=== PATIENT | female | born 1955 | race Caucasian/White ===

== ENCOUNTER → 2017-06-09 | Outpatient (CLI) | payer BC ==
[~2017-06-09] MED LIST: ALB0.5 INH; ALPR-461 PO; AUG875 PO; BI-EST; BI-EST PO; CAR350 PO; CARI-1 PO; CYC10 PO; CYCL10TA29 PO; ESTR0.5T18 PO; ESTRADIOL TD; FENT-23 TD; HYDR-2954 PO; HYDR-4309 PO; IBU600 PO; IBUP-1671 PO; IBUP-56 PO; LEVO75TA68 PO; LIOT50TA PO; LIOT5TAB12 PO; LIOT5TAB18; LIOT5TAB18 PO; LOR5 PO; LOR5/325 PO; METH4TAB57 PO; METH4TAB66 PO; OMEP-125 PO; OMEP40CA45 PO; ONDA4TAB PO; OXYC-865 PO; PANT40TA65 PO; PER PO; PRE20 PO; PRED-314 PO; PROG200C16; PROG200C16 PO; PROG200C7 PO; RANI-324 PO; RANI-325 PO; ROXICODONE PO; SUCR1TAB51 PO; SUCR1TAB85 PO; VICOPROFPT PO; [UNRECOGNIZED DRUG - CODE] PO
--- NOTE | 2017-06-10 14:19 | RADIOLOGY IMAGING REPORT ---
FACILITY: [facility] PATIENT NAME: ULISES LAMB : [id number] MR: [id number] V: [id number] EXAM DATE: [id number] ORDERING PHYSICIAN: IMTIAZ CHAPIN TECHNOLOGIST: Tana Hooks PROCEDURE:BILATERAL DIGITAL SCREENING MAMMOGRAM WITH CAD ASSISTED INTERPRETATION AND 3D BREAST TOMOSYNTHESIS. COMPARISON:Prior mammograms dated 06/05/16, 06/04/15, 12/15/14 and 06/15/14. INDICATIONS:SCREENING FINDINGS: A small to moderate amount of fibroglandular tissue is seen throughout the breasts. The parenchymal pattern has remained stable when allowing for difference in mammographic technique and patient positioning. There is no evidence of malignant appearing mass, malignant appearing calcification or other secondary sign of malignancy in either breast. DIAGNOSTIC CATEGORY 2--BENIGN FINDING. RECOMMENDATIONS: ROUTINE MAMMOGRAM AND CLINICAL EVALUATION. IMPRESSION: Bi-RADS 2: No significant abnormality is seen. Images were reviewed with R2CAD and 3D breast tomosynthesis. Dictated by: Yue Stallings M.D. on 06/09/2017 at 10:00 Transcribed by: ARETHA on 06/09/2017 at 15:06 Approved by: Yue Stallings M.D. on 06/10/2017 at 14:18 [facility]
== END ==
LOC: MAMO 01:25
PROVIDERS: ATTEND Family Medicine
DX: Z12.31 Encounter for screening mammogram for malignant neoplasm of breast (principal)
CPT/HCPCS: 77063; 77067

== ENCOUNTER 2017-07-15 22:53 | Emergency (ER) | payer BC ==
[~2017-07-15] VITALS: Ht 162.6 cm; Wt 63.5 kg
--- NOTE | 2017-07-15 23:04 | ER Report ---
History and Physical Time Seen By MD: 23:04 HPI/ROS CHIEF COMPLAINT: Low back pain, left leg pain HISTORY OF PRESENT ILLNESS: 61-year-old female with a long history of degenerative disc disease of her spine. Patient's here with aggravation of her pain down her left leg. Yesterday she was lifting groceries and felt a pulling sensation. She's been trying her oral medication and Flexeril at home without relief. She is status post 2 epidural steroid injections early April and early May without improvement of her condition. She is followed by Dr. Espinal over it [facility]. Patient has 2 previous ER visits for exacerbations of her pain many months apart. Patient denies fever or chills. Patient denies dysuria, frequency or hematuria. Patient denies incontinence. Patient reports she has an MRI from back in March of her lumbar region REVIEW OF SYSTEMS: Respiratory: No cough, no dyspnea. Cardiovascular: No chest pain, no palpitations. Gastrointestinal: No vomiting, no abdominal pain. Musculoskeletal: As above Allergies: Coded Allergies: metronidazole (Verified Allergy, Severe, RASH, 07/15/17) ciprofloxacin (Verified Allergy, Intermediate, Rash, 07/15/17) Sulfa (Sulfonamide Antibiotics) (Verified Allergy, Mild, 07/15/17) Disorientation Home Meds Active Scripts Methylprednisolone (METHYLPREDNISOLONE) 4 Mg Tab.ds.pk, 4 MG PO DIRECTED for sciatic nerve inflammation, #1 TAB Prov:MANUELA HAIDER Pablo DO 07/15/17 Oxycodone Hcl/Acetaminophen (PERCOCET 5-325 MG TABLET) 1 Each Tablet, 1-2 EACH PO Q4-6H Y for PAIN, #15 Prov:MELIZAMANUELA Pablo DO 07/15/17 Carisoprodol (SOMA) 350 Mg Tablet, 350 MG PO TID Y for muscle spasm relief, #20 TAB Prov:MANUELA HAIDER DO 07/15/17 Reported Medications [Hrt Patch] No Conflict Check, 1 PATCH.72H TD TWICE WEEKLY 07/15/17 Ibuprofen (MOTRIN IB) 200 Mg Tablet, 1-2 TAB PO PRN Y for PAIN 09/03/16 Cyclobenzaprine Hcl (CYCLOBENZAPRINE HCL) 10 Mg Tablet, 10 MG PO TID Y for BACK SPASM, #9 TAB 08/17/15 Liothyronine Sodium (CYTOMEL) 5 Mcg Tablet, 10 MCG PO DAILY 08/17/15 Levothyroxine Sodium (SYNTHROID) 75 Mcg Tablet, 75 MCG PO DAILY 04/13/13 Discontinued Scripts Carisoprodol (SOMA) 350 Mg Tablet, 350 MG PO QID Y for MUSCLE SPASMS, #20 TAB 0 Refills Prov:REGINA SHERMAN MD 01/29/17 Oxycodone Hcl/Acetaminophen (PERCOCET 5-325 MG TABLET) 1 Each Tablet, 1 EACH PO Q4H Y for PAIN, #12 TAB 0 Refills Prov:REGINA SHERMAN MD 01/29/17 Reviewed Nurses Notes: Yes Old Medical Records Reviewed: Yes Hx Smoking: No Smoking Status: Never Smoker Exposure to Second Hand Smoke?: No Hx Substance Use Disorder: No Hx Alcohol Use: Yes Constitutional Vital Sign - Last 24 Hours 07/15/17 07/15/17 23:05 23:48 Pulse 102 94 Resp 14 14 B/P (MAP) 128/90 114/95 (101) Pulse Ox 95 95 O2 Delivery Room Air Room Air Physical Exam General Appearance: The patient is alert, has no immediate need for airway protection and no current signs of toxicity. Vital signs stable, afebrile, pulse ox normal Eyes: Pupils equal and round no injection. Respiratory: Chest is non tender, lungs are clear to auscultation. Cardiac: regular rate and rhythm Gastrointestinal: Abdomen is soft and non tender, no masses, bowel sounds normal. Musculoskeletal: Neck: Neck is supple and non tender. Back: There is no tenderness in the midline. There is tenderness in the lumbar paraspinous muscles on the left and over the course of the sciatic nerve. Extremities have full range of motion and are non tender. Negative straight leg raise Skin: No rashes or lesions. DIFFERENTIAL DIAGNOSIS: After history and physical exam differential diagnosis was considered for back pain including but not limited to muscular pain, herniated disc, spine fracture, intra-abdominal causes and urinary tract infection. Medical Decision Making ED Course/Re-evaluation ED Course Patient was admitted to an examination room. H&P was done. The differential diagnoses was considered. On clinical examination. Patient has a nonfocal neurologic examination. She has tenderness over the left sciatic nerve. Patient reports she did have benefit from a Medrol Dosepak back in February by her primary care physician. She will be prescribed a Medrol Dosepak. She'll be given a limited supply of Soma and Percocet for pain relief. Here in the ER. She is administered. 2 mg of Dilaudid. And sent home with Dilaudid prepack. Decision to Disposition Date: Jul 15, 2017 Decision to Disposition Time: 23:24 Depart Departure Latest Vital Signs Vital Signs Date Time Temp Pulse Resp B/P (MAP) Pulse Ox O2 Delivery O2 Flow Rate FiO2 07/15/17 23:48 94 14 114/95 (101) 95 Room Air Impression: Primary Impression: Sciatica of left side Additional Impression: Degenerative disc disease, lumbar Condition: Improved Disposition: HOME OR SELF-CARE Referrals: IMTIAZ CHAPIN DO (PCP) New Scripts Methylprednisolone (METHYLPREDNISOLONE) 4 Mg Tab.ds.pk 4 MG PO DIRECTED for sciatic nerve inflammation, #1 TAB Prov: MANUELA HAIDER DO 07/15/17 Oxycodone Hcl/Acetaminophen (PERCOCET 5-325 MG TABLET) 1 Each Tablet 1-2 EACH PO Q4-6H Y for PAIN, #15 Prov: MANUELA HAIDER DO 07/15/17 Carisoprodol (SOMA) 350 Mg Tablet 350 MG PO TID Y for muscle spasm relief, #20 TAB Prov: MANUELA HAIDER DO 07/15/17 Patient Instructions: Degenerative Disc Disease (ED), Sciatica (ED) Additional Instructions: Follow-up with your primary care or Dr. Redmond if unimproved in 3-5 days Problem Qualifiers MANUELA HAIDER DO Jul 15, 2017 23:04
[2017-07-15] MEDS ORDERED: HRT PATCH TD (23:05)
[2017-07-15] MEDS ORDERED: METH4TAB66 PO (23:27)
[2017-07-15] MEDS ORDERED: CARI-1 PO (23:27)
[2017-07-15] MEDS ORDERED: OXYC-865 PO (23:27)
[2017-07-15] MEDS ORDERED: HYDROmorphone HCL 2 MG TAB PO ONE (23:30)
[2017-07-15] MEDS ORDERED: DIAZEPAM 5 MG TAB PO ONE (23:30)
[2017-07-15] MEDS ORDERED: HYDROmorphone 2 MG TAB TH 2 TAB/BOTTLE PO ONE (23:30)
[2017-07-15 23:48] VITALS: BP 114/95
== END 2017-07-15 23:48 | disposition home or self-care (01) ==
LOC: ER 23:03
DX: M54.32 Sciatica, left side (principal)
CPT/HCPCS: 99281; A9270

== ENCOUNTER 2018-03-06 14:08 | Emergency (ER) | payer BC ==
[~2018-03-06 14:08] MED LIST changes: +HRT PATCH TD; -RANI-324 PO; +RANI-366 PO
[2018-03-06] MEDS ORDERED: DIPHTH/TETANUS/ACEL. PERTUSSIS IM ONLY ONE (14:35)
--- NOTE | 2018-03-06 14:58 | ER Report ---
History and Physical Time Seen By MD: 14:25 Hx. of Stated Complaint: FELL FIVE FEET OFF A LADDER. HIT BACK OF HEAD, LANDED ON GLASS. LAC TO BACK OF HEAD. C=COLLAR APPLIED AT TIME OF ARRIVAL IN ER HPI/ROS CHIEF COMPLAINT: fall, head and neck injury HISTORY OF PRESENT ILLNESS: Patient was on a ladder at home approximately 30 minutes prior to arrival when she slipped back and fell. Patient feels she was approximately 5 feet off the ground she when she fell back and her head hit against a cabinet. As she continued to fall, the back of her head struck a glass cabinet, breaking the glass. She ultimately struck the ground. Her helped her up though she states she did not lose consciousness. She was able to ambulate on her own. She felt pain in the back of her head, and noted bleeding, and noted pain in the back of her neck. She now complains primarily of pain in the back of her neck. She denies visual changes, chest pain, shortness of breath, vomiting, numbness or weakness. She does have ongoing back pain for which she takes multiple medications but states that she this pain has not been exacerbated. REVIEW OF SYSTEMS: Constitutional: No fever, no chills. Eyes: No discharge. ENT: No sore throat. Cardiovascular: No chest pain, no palpitations. Respiratory: No cough, no shortness of breath. Gastrointestinal: No abdominal pain, no vomiting. Genitourinary: No hematuria. Musculoskeletal: Baseline back pain Skin: No rashes. Neurological: above Remainder of the 14 system rev: Yes Allergies: Coded Allergies: metronidazole (Verified Allergy, Severe, RASH, 03/06/18) ciprofloxacin (Verified Allergy, Intermediate, Rash, 03/06/18) Sulfa (Sulfonamide Antibiotics) (Verified Allergy, Mild, 03/06/18) Disorientation Home Meds Active Scripts Oxycodone Hcl/Acetaminophen (PERCOCET 5-325 MG TABLET) 1 Each Tablet, 1-2 EACH PO Q4-6H PRN for PAIN, #15 Prov:MANUELA HAIDER DO 07/15/17 Reported Medications [Hrt Patch] No Conflict Check, 1 PATCH.72H TD TWICE WEEKLY 07/15/17 Cyclobenzaprine Hcl (CYCLOBENZAPRINE HCL) 10 Mg Tablet, 10 MG PO TID PRN for BACK SPASM, #9 TAB 08/17/15 Liothyronine Sodium (CYTOMEL) 5 Mcg Tablet, 10 MCG PO DAILY 08/17/15 Levothyroxine Sodium (SYNTHROID) 75 Mcg Tablet, 75 MCG PO DAILY 04/13/13 Discontinued Reported Medications Ibuprofen (MOTRIN IB) 200 Mg Tablet, 1-2 TAB PO PRN PRN for PAIN 09/03/16 Discontinued Scripts Methylprednisolone (METHYLPREDNISOLONE) 4 Mg Tab.ds.pk, 4 MG PO DIRECTED for sciatic nerve inflammation, #1 TAB Prov:MANUELA HAIDER DO 07/15/17 Carisoprodol (SOMA) 350 Mg Tablet, 350 MG PO TID PRN for muscle spasm relief, #20 TAB Prov:MANUELA HAIDER DO 07/15/17 Reviewed Nurses Notes: Yes Hx Smoking: No Smoking Status: Never Smoker Exposure to Second Hand Smoke?: No Hx Substance Use Disorder: No Hx Alcohol Use: No Constitutional Vital Sign - Last 24 Hours 03/06/18 14:12 Temp 97.6 Pulse 99 Resp 16 B/P (MAP) 124/99 Pulse Ox 95 O2 Delivery Room Air Physical Exam General Appearance: The patient is alert, has no immediate need for airway protection and no signs of toxicity. Eyes: Pupils equal and round no pallor or injection. ENT, Mouth: Mucous membranes are moist. Head - 1.5 cm laceration posterior mid occiput with dried crusted blood Respiratory: There are no retractions, lungs are clear to auscultation. Cardiovascular: Regular rate and rhythm. Neurological: alert, oriented, moves all extremities Skin: Warm and dry, no rashes. Musculoskeletal: mid cspine ttp no stepoffs Extremities are nontender, nonswollen and have full range of motion. DIFFERENTIAL DIAGNOSIS: After history and physical exam differential diagnosis was considered for closed head injury, ich, cervical spine fracture or other emergent etiology Medical Decision Making ED Course/Re-evaluation ED Course Patient presents status post fall. CT is unremarkable. Repeat exam shows no further injury. Laceration irrigated thoroughly and evaluated to depth without foreign body or evidence of fracture. Patient ambulates without discomfort on discharge. She has pain medication at home for back pain and I recommend no additional pain medication other than ice and massage for soft tissues. Patient understands strict return precautions for signs of infection or other concerning symptoms. Procedure Procedure: Laceration repair. [Verbal consent was obtained from the patient.] The 4cm laceration on the mid post scalp was anesthetized with let The wound was irrigated, draped and explored to its base with a gloved finger. There were no deep structures involved. No tendon injury was identified. The wound was repaired with 6 nils. The wound repair was simple. The procedure was performed by myself. Decision to Disposition Date: Mar 06, 2018 Decision to Disposition Time: 16:15 Depart Departure Latest Vital Signs Vital Signs Date Time Temp Pulse Resp B/P (MAP) Pulse Ox O2 Delivery O2 Flow Rate FiO2 03/06/18 14:12 97.6 99 16 124/99 95 Room Air Impression: Primary Impression: Closed head injury Additional Impression: Scalp laceration Condition: Improved Disposition: HOME OR SELF-CARE Referrals: IMTIAZ CHAPIN DO (PCP) 10 Days Follow up in 9-10 days for staple remover; sooner for any concerns. Patient Instructions: Concussion (ED), Laceration (ED) Additional Instructions: Apply bacitracin twice daily. Return for signs of infection or any concerns. Problem Qualifiers Primary Impression: Closed head injury Encounter type: initial encounter Qualified Codes: S09.90XA - Unspecified injury of head, initial encounter Additional Impression: Scalp laceration Encounter type: initial encounter Qualified Codes: S01.01XA - Laceration without foreign body of scalp, initial encounter MILDRED HAAS MD Mar 06, 2018 14:58
--- NOTE | 2018-03-06 15:17 | RADIOLOGY IMAGING REPORT ---
[place] [facility] [place] Corinne Chand : 1955 MR: [id number] V: [id number] EXAM DATE: ORDERING PHYSICIAN: MILDRED HAAS TECHNOLOGIST: Location: [facility] [place] Patient: Corinne Chand : 1955 Visit/Account:[id number] Date of Sevice: 03/06/[address] scan without contrast COMPARISONS: None ADDITIONAL PERTINENT HISTORY: Fall with loss of consciousness. TECHNIQUE: Multiple axial images were obtained from the skull base to the vertex without IV contrast . One of the following dose optimization techniques was utilized in the performance of this exam: Aut omated exposure control; adjustment of the mA and/or kV according to the patient's size; or use of an iterative reconstruction technique. Specific details can be referenced in the facility's radiology CT exam operational policy. FINDINGS: Midline shift: Negative Ventricles: Negative Brain parenchyma: Negative Extra-axial spaces: Negative Intracranial vasculature: Negative Osseous structures: Negative Paranasal sinuses and mastoid air cells: Negative Surrounding soft tissues and orbits: Negative IMPRESSION: Normal head CT scan without contrast. Report Dictated By: Juan Abbasi MD at 03/06/2018 3:08 PM Report E-Signed By: Juan Abbasi MD at 03/06/2018 3:11 PM WSN:[id number]
--- NOTE | 2018-03-06 15:21 | RADIOLOGY IMAGING REPORT ---
FACILITY: [facility] - [place] PATIENT NAME: Corinne Chand : 1955 MR: [id number] V: [id number] EXAM DATE: ORDERING PHYSICIAN: MILDRED HAAS TECHNOLOGIST: Location: [facility] Patient: Corinne Chand : 1955 Visit/Account:[id number] Date of Sevice: 03/06/2018 C-SPINE W/O CONTRAST COMPARISONS: None. ADDITIONAL PERTINENT HISTORY: Fall with pain TECHNIQUE: Multiple axial images were obtained from the skull base through the upper thoracic spine with coronal and sagittal reformatted images obtained without IV contrast. One of the following dose optimization techniques was utilized in the performance of this exam: Automated exposure control; adj ustment of the mA and/or kV according to the patient's size; or use of an iterative reconstruction t echnique. Specific details can be referenced in the facility's radiology CT exam operational policy. FINDINGS. Vertebral body heights and alignment: Straightening of normal cervical lordosis. Otherwise negative Vertebral bodies: Anteriorly and posteriorly directed osteophytes within the cervical spine. No bony fractures. Disc spaces: Disc space narrowing at C4-C5 and C6-C7. Cranial cervical junction: Negative. Cervical thoracic junction: Negative. Surrounding soft tissues: Negative. Lung apices: Pleural-parenchymal changes involving both lung apices. Otherwise negative IMPRESSION: 1. Spondylitic change involving the cervical spine. 2. No acute appearing bony abnormalities. Report Dictated By: Juan Abbasi MD at 03/06/2018 3:13 PM Report E-Signed By: Juan Abbasi MD at 03/06/2018 3:17 PM WSN:[id number]
[2018-03-06] MEDS ORDERED: TETRACAIN/EPI/LIDO GEL 3ML SYR TP ONE (15:25)
[2018-03-06 16:00] VITALS: BP 132/75
[2018-03-08] MEDS ORDERED: RANI-318 PO (14:29)
== END 2018-03-06 16:33 | disposition home or self-care (01) ==
LOC: ER 14:10
DX: S01.01XA Laceration without foreign body of scalp, initial encounter (principal); S09.90XA Unspecified injury of head, initial encounter; W11.XXXA Fall on and from ladder, initial encounter
CPT/HCPCS: 70450; 72125; 90471; 90715; 99283

== ENCOUNTER 2018-04-09 14:06 | Emergency (ER) | payer BC ==
[~2018-04-09 14:06] MED LIST changes: -HYDR-4309 PO; +HYDR-653 PO; +RANI-318 PO
[2018-04-09] MEDS ORDERED: LIO5 (14:16)
[2018-04-09] MEDS ORDERED: ESTR1PAT18 (14:16)
[2018-04-09] MEDS ORDERED: CLIN100S3 (14:16)
--- NOTE | 2018-04-09 14:18 | ER Report ---
History and Physical Time Seen By MD: 14:18 HPI/ROS CHIEF COMPLAINT: UPPER BACK PAIN AND CHEST PRESSURE HISTORY OF PRESENT ILLNESS: Pt has long hx low back pain. PT had surgery on her lower back and had been doing well until one year ago when she developed some returning pain and left hip pain. Pt has been being treated by a doctor in [place] and takes percocet as needed for pain. Pt started 48 hours ago with pain in her upper back between her shoulder blades. that pain hurts when she lies flat or when it is touched. Pt also started with some stiffness in her upper back. no fevers. Pt also noticed in last two days some chest heaviness that goes to her back. Pt dad has hx of mi. Pt denies cardiac hx .Pt took percocet but did not help her chest heaviness. Pt denies sob but states "it feels hard to lift my chest to get the air in" . No nausea. no diaphoresis. Called her doctor and told to go to ed. Pt is currently on abx for sinusitis REVIEW OF SYSTEMS: Constitutional: No fever, no chills. Eyes: No discharge. ENT: No sore throat. Cardiovascular: + chest pain, no palpitations. Respiratory: No cough, no shortness of breath. Gastrointestinal: No abdominal pain, no vomiting. Genitourinary: No hematuria. Musculoskeletal: + back pain. Skin: No rashes. Neurological: No headache. Allergies: Coded Allergies: metronidazole (Verified Allergy, Severe, RASH, 04/09/18) ciprofloxacin (Verified Allergy, Intermediate, Rash, 04/09/18) Sulfa (Sulfonamide Antibiotics) (Verified Allergy, Mild, 04/09/18) Disorientation Home Meds Active Scripts Ranitidine Hcl (RANITIDINE HCL) 150 Mg Tablet, 1 TAB PO BID, #60 TAB 6 Refills Prov:LALITHA PEREZ MD 03/08/18 Oxycodone Hcl/Acetaminophen (PERCOCET 5-325 MG TABLET) 1 Each Tablet, 1-2 EACH PO Q4-6H PRN for PAIN, #15 Prov:MANUELA DIAZ DO 07/15/17 Reported Medications Estradiol (Estradiol) 1 Each Patch.tdsw, 2XW 04/09/18 Clindamycin Phosphate (CLEOCIN) 100 Mg Supp.vag, QHS 04/09/18 Cyclobenzaprine Hcl (CYCLOBENZAPRINE HCL) 10 Mg Tablet, 10 MG PO TID PRN for BACK SPASM, #9 TAB 08/17/15 Liothyronine Sodium (CYTOMEL) 5 Mcg Tablet, 10 MCG PO DAILY 08/17/15 Levothyroxine Sodium (SYNTHROID) 75 Mcg Tablet, 75 MCG PO DAILY 04/13/13 Discontinued Reported Medications Liothyronine Sodium (LIOTHYRONINE SODIUM) 5 Mcg Tablet, QDAY 04/09/18 [Hrt Patch] No Conflict Check, 1 PATCH.72H TD TWICE WEEKLY 07/15/17 Past Medical/Surgical History Pmhx: Lumbar hernatied disc, hypothyroid Pshx: discectomy Reviewed Nurses Notes: Yes Old Medical Records Reviewed: Yes Hx Smoking: No Smoking Status: Never Smoker Exposure to Second Hand Smoke?: No Hx Substance Use Disorder: No Hx Alcohol Use: No Constitutional Vital Sign - Last 24 Hours 04/09/18 04/09/18 04/09/18 04/09/18 14:10 14:11 14:21 14:30 Temp 98.2 Pulse 102 117 Resp 18 11 B/P (MAP) 158/80 158/80 (106) 132/76 (94) Pulse Ox 95 96 O2 Delivery Room Air 04/09/18 04/09/18 04/09/18 04/09/18 14:36 14:49 14:59 15:00 Pulse 111 124 Resp 17 B/P (MAP) 123/95 (104) 100/75 (83) Pulse Ox 94 93 04/09/18 04/09/18 04/09/18 04/09/18 15:05 15:06 15:10 15:15 Pulse 125 113 109 Resp 10 10 22 B/P (MAP) 120/74 (89) Pulse Ox 92 91 92 04/09/18 04/09/18 04/09/18 04/09/18 15:20 15:25 15:25 15:30 Pulse 104 105 105 98 Resp 15 9 9 12 B/P (MAP) 109/68 (82) Pulse Ox 93 93 93 92 04/09/18 04/09/18 04/09/18 04/09/18 15:30 15:35 15:55 16:00 Pulse 98 103 88 87 Resp 12 9 10 25 B/P (MAP) 109/68 (82) 125/70 (88) Pulse Ox 92 92 95 95 04/09/18 04/09/18 04/09/18 04/09/18 16:05 16:20 16:30 16:35 Pulse 88 83 91 Resp 10 12 12 B/P (MAP) 120/63 (82) Pulse Ox 93 92 92 04/09/18 04/09/18 04/09/18 16:50 17:00 17:05 Pulse 81 84 Resp 17 10 B/P (MAP) 106/72 (83) Pulse Ox 93 96 Physical Exam General Appearance: The patient is alert, has no immediate need for airway protection and no signs of toxicity. Eyes: Pupils equal and round no pallor or injection, EOMI ENT: no pharyngeal erythema or exudates, Mucous membranes are moist, TM are nl b/l Respiratory: There are no retractions, lungs are clear to auscultation. Cardiovascular: Regular rate and rhythm. pulses are equal and symmetrical Gastrointestinal: Abdomen is soft and non tender, no masses, bowel sounds normal, no guarding, no rigidity or rebound Neurological: Cranial nerves II-XII grossly intact, no sensory or motor loss Skin: Warm and dry, no rashes. Musculoskeletal: Neck is supple non tender, + tenderness T4-7 midline and pa ravertebral Extremities are nontender, non swollen and have full range of motion. DIFFERENTIAL DIAGNOSIS: After history and physical exam differential diagnosis was considered for pleurisy, muscleskeletal, pe, dissection, mi Medical Decision Making Data Points Result Diagram: 04/09/18 1416 04/09/18 1416 Laboratory Hematology Test 04/09/18 14:16 Red Blood Count 4.66 M/uL (4.17-5.56) Mean Corpuscular Volume 89.1 fL (80.0-96.0) Mean Corpuscular Hemoglobin 30.5 pg (26.0-33.0) Mean Corpuscular Hemoglobin Concent 34.2 g/dL (32.0-36.0) Red Cell Distribution Width 12.5 % (11.5-14.5) Mean Platelet Volume 8.0 fL (7.2-11.1) Neutrophils (%) (Auto) 65.1 % (39.4-72.5) Lymphocytes (%) (Auto) 26.0 % (17.6-49.6) Monocytes (%) (Auto) 6.5 % (4.1-12.4) Eosinophils (%) (Auto) 1.8 % (0.4-6.7) Basophils (%) (Auto) 0.6 % (0.3-1.4) Nucleated RBC Relative Count (auto) 0.1 /100WBC Neutrophils # (Auto) 4.7 K/uL (2.0-7.4) Lymphocytes # (Auto) 1.9 K/uL (1.3-3.6) Monocytes # (Auto) 0.5 K/uL (0.3-1.0) Eosinophils # (Auto) 0.1 K/uL (0.0-0.5) Basophils # (Auto) 0.0 K/uL (0.0-0.1) Nucleated RBC Absolute Count (auto) 0.00 K/uL Peripheral Blood Smear No Y/N D-Dimer Quantitative (PE/DVT) 0.31 ug/ml (0-0.50) Sodium Level 137 mmol/L (137-145) Potassium Level 3.5 mmol/L (3.5-5.0) Chloride Level 102 mmol/L (98-107) Carbon Dioxide Level 23 mmol/L (22-31) Blood Urea Nitrogen 13 mg/dl (7-18) Creatinine 0.60 mg/dl (0.52-1.04) Glomerular Filtration Rate Calc > 60.0 Random Glucose 106 mg/dl (75-110) Calcium Level 8.8 mg/dl (8.4-10.2) Total Bilirubin 0.4 mg/dl (0.2-1.3) Aspartate Amino Transf (AST/SGOT) 24 U/L (0-35) Alanine Aminotransferase (ALT/SGPT) 30 U/L (0-56) Alkaline Phosphatase 100 U/L (0-126) Troponin I < 0.012 ng/ml Total Protein 7.3 g/dl (6.3-8.2) Albumin 4.1 g/dl (3.5-5.0) Lipase 103 U/L (23-300) Chemistry Test 04/09/18 14:16 White Blood Count 7.2 k/uL (4.5-11.0) Red Blood Count 4.66 M/uL (4.17-5.56) Hemoglobin 14.2 g/dL (12.0-16.0) Hematocrit 41.5 % (34.0-47.0) Mean Corpuscular Volume 89.1 fL (80.0-96.0) Mean Corpuscular Hemoglobin 30.5 pg (26.0-33.0) Mean Corpuscular Hemoglobin Concent 34.2 g/dL (32.0-36.0) Red Cell Distribution Width 12.5 % (11.5-14.5) Platelet Count 265 K/uL (150-450) Mean Platelet Volume 8.0 fL (7.2-11.1) Neutrophils (%) (Auto) 65.1 % (39.4-72.5) Lymphocytes (%) (Auto) 26.0 % (17.6-49.6) Monocytes (%) (Auto) 6.5 % (4.1-12.4) Eosinophils (%) (Auto) 1.8 % (0.4-6.7) Basophils (%) (Auto) 0.6 % (0.3-1.4) Nucleated RBC Relative Count (auto) 0.1 /100WBC Neutrophils # (Auto) 4.7 K/uL (2.0-7.4) Lymphocytes # (Auto) 1.9 K/uL (1.3-3.6) Monocytes # (Auto) 0.5 K/uL (0.3-1.0) Eosinophils # (Auto) 0.1 K/uL (0.0-0.5) Basophils # (Auto) 0.0 K/uL (0.0-0.1) Nucleated RBC Absolute Count (auto) 0.00 K/uL Peripheral Blood Smear No Y/N D-Dimer Quantitative (PE/DVT) 0.31 ug/ml (0-0.50) Glomerular Filtration Rate Calc > 60.0 Calcium Level 8.8 mg/dl (8.4-10.2) Total Bilirubin 0.4 mg/dl (0.2-1.3) Aspartate Amino Transf (AST/SGOT) 24 U/L (0-35) Alanine Aminotransferase (ALT/SGPT) 30 U/L (0-56) Alkaline Phosphatase 100 U/L (0-126) Troponin I < 0.012 ng/ml Total Protein 7.3 g/dl (6.3-8.2) Albumin 4.1 g/dl (3.5-5.0) Lipase 103 U/L (23-300) Coagulation Test 04/09/18 14:16 D-Dimer Quantitative (PE/DVT) 0.31 ug/ml EKG/Imaging EKG Interpretation Sinus tach @[address] wave changes and qt prolongation; compared to 28-Jul-2015 no significant changes Imaging no acute pathology ED Course/Re-evaluation Clinical Indication for ER IV: IV Access ED Course check labs and xray 04/09/2018 2:59:27 pm Pts initial blood work appears stable. will keep for second troponin but with pressure for 48 hours I would have suspected the initial trop to be abnormal if cardiac. Pt did feel that the nitro helped relieve her pressure. Pt going to xray. 04/09/2018 3:31:03 pm Pt states her chest pressure is returning and the pain in her back never went away. I do not see a widened mediastinum. PT appears anxious. I will add a tsh in case the anxiety/cp is related to her thryroid. We discussed the pro/con of CT and pt prefers to continue with the CT. Will image to rule out any dissection. If second trop and ct are negative then we will need to follow up [facility] Dr. Schaeffer to arrange nuclear stress test as outpt for further evaluation. 04/09/2018 5:11:[address] report with patient. PT awaiting repeat troponin and ekg. Pts pain is "80%" better. 04/09/2018 5:34:28 pm Pt will be signed out to Dr. Diaz pending results of second troponin and ekg. If normal then will send home for outpt sign up. Decision to Disposition Date: Apr 09, 2018 Decision to Disposition Time: 18:07 Depart Departure Latest Vital Signs Vital Signs Date Time Temp Pulse Resp B/P (MAP) Pulse Ox O2 Delivery O2 Flow Rate FiO2 04/09/18 17:05 84 10 96 04/09/18 17:00 106/72 (83) 04/09/18 14:10 98.2 Room Air Impression: Primary Impression: Chest pain in adult Additional Impression: Back pain Condition: Improved Disposition: HOME OR SELF-CARE Referrals: IMTIAZ CHAPIN DO (PCP) 2 Days Patient Instructions: Back Pain (ED), Chest Pain (DC) Additional Instructions: Your blood work today did not show a heart attack; however, this does not mean you do not have heart disease. Follow up with your family doctor to schedule an out patient nuclear stress test and to arrange to see a voice over artist You should continue your current pain management program. Return for any concerns or changes in symptoms. Problem Qualifiers Additional Impression: Back pain Back pain location: thoracic back pain Chronicity: acute Back pain laterality: midline Qualified Codes: M54.6 - Pain in thoracic spine TERRY OWENS DO Apr 09, 2018 14:18
[2018-04-09] MEDS ORDERED: ORPHENADRINE 60MG/2ML INJ IVP ONE (14:30)
[2018-04-09] MEDS ORDERED: ASPIRIN 81 MG CHEW PO ONE (14:30)
[2018-04-09] MEDS ORDERED: NITROGLYCERIN 0.4 MG SUBL SL ONE (14:30)
[2018-04-09 14:36] LABS: PLATELET COUNT, AUTOMATED 265 K/uL (150-450)
--- NOTE | 2018-04-09 15:05 | EKG ---
FACILITY: [facility] PATIENT NAME: ULISES LAMB : [id number] MR: [id number] V: [id number] EXAM DATE: ORDERING PHYSICIAN: TERRY OWENS TECHNOLOGIST: Test Reason : chest pain to her back Blood Pressure : / mmHG Vent. Rate : 100 BPM Atrial Rate : 100 BPM P-R Int : 116 ms QRS Dur : 086 ms QT Int : 388 ms P-R-T Axes : 065 033 055 degrees QTc Int : 500 ms Normal sinus rhythm Nonspecific ST and T wave abnormality Prolonged QT Abnormal ECG When compared with ECG of 28-JUL-2015 08:17, QT has lengthened Confirmed by Dwayne Lujan ([id number]) on 04/09/2018 8:45:29 PM Referred By: Confirmed By:Dwayne Roberts
--- NOTE | 2018-04-09 15:22 | RADIOLOGY IMAGING REPORT ---
FACILITY: [facility] [place] PATIENT NAME: Corinne Chand : 1955 MR: [id number] V: [id number] EXAM DATE: ORDERING PHYSICIAN: TERRY OWENS TECHNOLOGIST: Location: [facility] [place] Patient: Corinne Chand : 1955 Visit/Account:[id number] Date of Sevice: 04/09/2018 CHEST PA AND LAT Indication: Chest Pain Comparison: None. Findings: Lungs: Clear. Mediastinum/pulmonary vasculature: Heart size and pulmonary vasculature are normal. Bones/soft tissues: Normal. IMPRESSION: Clear lungs. Report Dictated By: Lg Sher at 04/09/2018 3:17 PM Report E-Signed By: Lg Sher at 04/09/2018 3:17 PM WSN:[id number]
[2018-04-09] MEDS ORDERED: MORPHINE 4 MG/ML SDV IVP ONE (15:25)
[2018-04-09] MEDS ORDERED: IOPAMIDOL 76% 75 ML INFUS BTL 75 ML ONE (15:35)
[2018-04-09] MEDS ORDERED: NS(*) 0.9% 50 ML BAG 50 ML ONE (15:35)
--- NOTE | 2018-04-09 16:40 | RADIOLOGY IMAGING REPORT ---
FACILITY: [facility] [place] PATIENT NAME: Corinne Chand : 1955 MR: [id number] V: [id number] EXAM DATE: ORDERING PHYSICIAN: TERRY OWENS TECHNOLOGIST: Location: [facility] Patient: Corinne Chand : 1955 Visit/Account:[id number] Date of Sevice: 04/09/2018 Examination: CTA CHEST ABD PEL W WO CONT Comparison: CT report from 07/28/2015. History: Chest pressure radiating to the back and shoulders. Procedure: Noncontrast and arterial phase imaging of the chest, abdomen, and pelvis with 75 mL intrav enous Isovue 370. Reconstruction of the source data set includes multiplanar 2D in the sagittal and c oronal planes, and 3D reconstructed coronal slab MIP series. One of the following dose optimization techniques was utilized in the performance of this exam: Autom ated exposure control; adjustment of the mA and/or kV according to the patient's size; or use of an i terative reconstruction technique. Specific details can be referenced in the facility's radiology C T exam operational policy. Findings: CTA: Cardiac chambers: Negative. Thoracic aorta: Negative. Aortic arch vessels: Negative. Main pulmonary artery: Size is normal. Abdominal aorta: Negative. Celiac artery, superior mesenteric artery, and inferior mesenteric artery: Negative. Renal arteries: Single left main renal artery with minimal calcified plaque along the proximal vessel ; no luminal stenosis. Dominant right main renal artery with a smaller accessory branch perfusing the lower pole and arising from the aorta just distal to the main renal artery. Right renal arteries are otherwise unremarkable. Right iliac arteries: Negative. Left iliac arteries: Negative. CT chest: Mediastinum: Negative. Lymph nodes: Negative. Lungs and airways: Negative. Diaphragm: Negative. CT abdomen and pelvis: Liver: Negative. Gallbladder and biliary system: Negative Spleen: Spleen size is normal. Pancreas: Negative. Adrenal glands: Negative. Kidneys and bladder: No renal mass or evidence of an obstructive uropathy. Urinary bladder is unrema rkable. Vessels: Limited evaluation of the venous structures due to the arterial phase of enhancement. Bowel and mesentery: Tiny hiatal hernia. No gastric distention. Small bowel and appendix are unremark able. Moderate amount of stool in the colon. No bowel or mesenteric inflammation. Pelvic organs: Negative. Lymph nodes: No adenopathy. Free air/free fluid: None. Abdominal wall and subcutaneous tissues: Negative. Osseous structures: L4-L5 mild disc space loss. No acute findings. IMPRESSION: 1. Negative CTA chest, abdomen, and pelvis. No evidence of a thoracoabdominal aortic aneurysm or diss ection. 2. No acute findings in the chest, abdomen, or pelvis. Report Dictated By: Marquise Iglesias MD at 04/09/2018 4:25 PM Report E-Signed By: Marquise Iglesias MD at 04/09/2018 4:36 PM WSN:[id number]
--- NOTE | 2018-04-09 18:13 | EKG ---
FACILITY: [facility] PATIENT NAME: ULISES LAMB : [id number] MR: [id number] V: [id number] EXAM DATE: ORDERING PHYSICIAN: TERRY OWENS TECHNOLOGIST: Test Reason : Repeat Blood Pressure : / mmHG Vent. Rate : 083 BPM Atrial Rate : 083 BPM P-R Int : 124 ms QRS Dur : 076 ms QT Int : 436 ms P-R-T Axes : 056 018 015 degrees QTc Int : 512 ms Normal sinus rhythm Nonspecific ST and T wave abnormality Prolonged QT Abnormal ECG When compared with ECG of 09-APR-2018 14:17, Nonspecific T wave abnormality, improved in Lateral leads Confirmed by Dwayne Lujan ([id number]) on 04/09/2018 8:46:18 PM Referred By: Confirmed By:Dwayne Roberts
[2018-04-09 18:22] VITALS: BP 121/70
== END 2018-04-09 18:27 | disposition home or self-care (01) ==
LOC: ER 14:20
DX: M54.6 Pain in thoracic spine (principal); R07.89 Other chest pain; E03.9 Hypothyroidism, unspecified
CPT/HCPCS: 36415; 71046; 71275; 74174; 83690; 84443; 84484; 85025; 85379; 93005; 96374; 96375; 99284; J2270; J2360; J7050; Q9967; 82040; 82247; 82310; 82374; 82435; 82565; 82947; 84075; 84132; 84155; 84295; 84450; 84460; 84520

== ENCOUNTER → 2018-06-24 | Outpatient (CLI) | payer BC ==
[~2018-06-24] MED LIST changes: +CLIN100S3; +ESTR1PAT18; +LIO5
--- NOTE | 2018-06-25 09:02 | RADIOLOGY IMAGING REPORT ---
FACILITY: [facility] [place] PATIENT NAME: ULISES LAMB : [id number] MR: [id number] V: [id number] EXAM DATE: ORDERING PHYSICIAN: IMTIAZ CHAPIN TECHNOLOGIST: Leidy Chang PROCEDURE:BILATERAL DIGITAL SCREENING MAMMOGRAM WITH CAD ASSISTED INTERPRETATION & 3D TOMOSYNTHESIS COMPARISON:None. INDICATIONS:SCREENING FINDINGS: Scattered fibroglandular densities are seen throughout the breasts. Most of the parenchymal pattern has remained stable allowing for difference in mammographic technique & patient positioning. There are several loosely grouped round calcifications in the upper portion of the Right breast at the junction of the middle and posterior 1/3 not appreciated on the prior study and are best seen on MLO Tomographic image slice 27. These are incompletely imaged along the posterior lateral aspect on the Right CC view best seen on Tomographic slice 28. Spot magnificent view of these calcifications recommended for further evaluation in addition to a Right XCC view. DIAGNOSTIC CATEGORY 0--INCOMPLETE: NEED ADDITIONAL IMAGING EVALUATION. RECOMMENDATIONS: ADDITIONAL MAMMOGRAPHIC VIEWS REQUIRED: RIGHT BREAST. IMPRESSION: BIRADS 0: Incomplete. Additional views of the Right breast recommended as described. Dictated by: Yue Stallings M.D. on 06/24/2018 at 17:59 Transcribed by: JUAN M on 06/25/2018 at 8:03 Approved by: Yue Stallings M.D. on 06/25/2018 at 9:01 [facility]
== END ==
LOC: MAMO 00:43
PROVIDERS: ATTEND Family Medicine
DX: Z12.31 Encounter for screening mammogram for malignant neoplasm of breast (principal); R92.8 Other abnormal and inconclusive findings on diagnostic imaging of breast
CPT/HCPCS: 77063; 77067

== ENCOUNTER → 2018-07-28 | Outpatient (REF) | payer BC ==
[2018-07-28 14:46] LABS: PLATELET COUNT, AUTOMATED 339 K/uL (150-450)
== END ==
PROVIDERS: ATTEND Nurse Practitioner Family
DX: R06.02 Shortness of breath (principal); R07.9 Chest pain, unspecified
CPT/HCPCS: 82040; 82247; 82310; 82374; 82435; 82565; 82947; 83880; 84075; 84132; 84155; 84295; 84450; 84460; 84520; 85025

== ENCOUNTER → 2018-08-04 | Outpatient (CLI) | payer BC | LOC: LAB 15:36 | PROVIDERS: ATTEND Family Medicine | DX: R06.00 Dyspnea, unspecified (principal) | CPT/HCPCS: 36415; 85379 ==

== ENCOUNTER → 2018-09-08 | Outpatient (RCR) | payer BC ==
--- NOTE | 2018-06-11 15:39 | PT INITIAL EVALUATION ---
MEDICAL DIAGNOSIS: Bilateral Lateral Hip Pain TREATMENT DIAGNOSIS: Bilateral Lateral Hip Pain, Left Trochanteric and Gluteofemoral Bursitis DATE OF ONSET: 06/10/18 SUBJECTIVE: Corinne is a 62 year old female presenting to physical therapy following recent onset of lateral hip pain on the L side. Corinne reports that she has a history of L4-5 herniation with laminectomy in 2008. Later in 2017, she reports re-injuring her back with an annular tear. Following steroid injection management and referral to pain specialist pt has had no back pain or pain radiating down either leg. However, following initiating taper off of her pain medications she started developing lateral hip pain on the L hip and now starting on the R hip. Pt reports that the pain feels different than it use to when the pain was coming from the back with the pain more achy, less sharp, and not going down to the ankle like it use to. Pain is always on the lateral hip, but occasionally also goes along the outside of the leg to the knee. Pain increases with lying on the either side L>R and with pressure when riding in a bucket seat in the car. Pt reports no pain with walking or prolonged sitting otherwise, but does report delayed pain following walking 2 miles then next day with the hip really sore and achy. Pain is currently rated as 2/10 on the L and nothing on the R, pain is worst B at 8/10, and will occasionally go away on the L as well at best. Pt was previously very active and would like to resume regular exercise for pain management and weight loss. Pt reports that she tried PT treatment for her hip earlier and that it just made her back hurt with the focus on lumbar extension. REHAB PROBLEM LIST: Increased Pain Decreased ROM Decreased Strength Decreased Endurance Decreased Balance Decreased Function Decreased ADL's Decreased Mobility Decreased Gait PREVIOUS MEDICAL HISTORY: See EMR OBJECTIVE: Posture: Posture unremarkable at rest. ROM: Lumbar ROM: Flexion: full no pain, Ext: moderate restrictions with back pain, B SB: full and equal with pain with R SB on lateral hip, Rotation: full and equal without pain. Strength: LE MMT (L,R): Hip: flexion: 3+/5 with pain, 4-/5, ext: 3+/5, 4-/5, add: 4/5 with pain in end range adduction, 4/5, abd: 4-/5, 4/5. Knee: flexion: 4-/5, 5-/5, ext: 4-/5, 5-/5, Ankle: DF: 4+/5, 5/5, PF: 4+/5, 4+/5 Palpation: Pt is significantly tender to palpation of the lateral L hip with pain with light touch. Pain is most acute along the femoral head with swelling along both the greater trochanter and just below along the IT band. Sensation: Pt reports no numbness or tingling down either legs. Special Tests: Lynne test (+)L, Thigh thrust (-)B, JOHNNY (+)L, (-)R, FADIR (+)L, (-)R: lateral hip pain with all positive tests on L Balance: Pt unable to tolerate B SLS without hip collapse and pain on the L hip. Other Objective Findings: ASSESSMENT: Corinne presents with signs and symptoms consistent with left trochanteric and gluteofemoral bursitis with additional generalized weakness of the lower extremity bilaterally. Physical therapy is indicated for this patient to address the above listed deficits to improve pt function with ADL's and recreational activities. Short Term Goals In 3 weeks pt will have no pain with end range L hip adduction for improved function with ADL's. In 3 weeks pt will be able to stand on B LE SLS for 10 seconds without hip drop or pain for improved function with gait and ADL's. In 6 weeks pt will improve B hip strength to 4/5 or greater for improved function with ADL's. In 6 weeks pt will be able to walk 2 miles without onset of hip pain that day or the following day for improved function with recreational activities. Patient's Goals Decrease pain and return to recreational walking and exercise. PLAN: Patient to be seen for Manual Therapy/STM/MET Strengthening/condition Ice/Heat Range of Motion Spinal Stabilization Ultrasound Stretching Iontophoresis Neuromuscular Re-ed Closed Chain Program Electrical Stim Posture/Body mechanics Gait Trg/Balance Trg Biofeedback Home Exercise Program Mech./Manual Traction Therapeutic Activities Pelvic Floor 3x/Week for 6 Weeks If you have any questions, comments, or concerns about this report or plan, please contact me at . Thanks, Sapphire Henry, PT, DPT, CLT MTDD
--- NOTE | 2018-07-05 12:54 | PT PLAN OF CARE ---
Physician: Vannessa Taylor MD Patient is being seen: 1x/MO Therapist: Sapphire Henry, PT, DPT, CLT Medical Diagnosis: Bilateral Lateral Hip Pain Treatment Diagnosis: Bilateral Lateral Hip Pain, Left Trochanteric and Gluteofemoral Bursitis Date of Onset: 06/10/18 Date of Initial Evaluation: 06/10/18 Date patient was last seen: 07/05/18 Number of treatments: 10 Number of cancellations/No shows: 0 INTERVENTIONS: Manual Therapy/STM/MET Strengthening/condition Ice/Heat Range of Motion Spinal Stabilization Ultrasound Stretching Iontophoresis Neuromuscular Re-ed Closed Chain Program Electrical Stim Posture/Body mechanics Gait Trg/Balance Trg Biofeedback Home Exercise Program Mech./Manual Traction Therapeutic Activities Pelvic Floor GOALS: In 3 weeks pt will have no pain with end range L hip adduction for improved function with ADL's. MET In 3 weeks pt will be able to stand on B LE SLS for 10 seconds without hip drop or pain for improved function with gait and ADL's. MET on L only In 6 weeks pt will improve B hip strength to 4/5 or greater for improved function with ADL's. In 6 weeks pt will be able to walk 2 miles without onset of hip pain that day or the following day for improved function with recreational activities. PATIENT'S GOAL: Decrease pain and return to recreational walking and exercise. Status of Patient's Goals: 1/4 MET, 3/4 In Progress Patient Compliance: Good Prognosis: Good Reasons for continuing therapy: Corinne shows good gradual progression with treatment of bursitis. However, neurological pain remains with hypersensitivity throughout the lateral hip and posterior leg and pain radiating down to the calf. Pain also occasionally continues up into the B PSIS and up the back. It is likely that neurological pain is radiating from the low back with the presenting schema of pain, however pt wishes to not pursue this option. Continued treatment of lateral hip pain, while treating nerve symptoms such as desensitization and strengthening are indicated for this patient with continued treatment with possible reassessment of low back if nerve pain continues. At this time pain has decreased in frequency and intensity overall with improved function. Posture: Posture unremarkable at rest. ROM: Lumbar ROM: Flexion: full no pain, Ext: moderate restrictions with back pain, B SB: full and equal with pain with R SB on lateral hip, Rotation: full and equal without pain. Strength: LE MMT (L,R): Hip: flexion: 3+/5 with pain, 4-/5, ext: 4-/5, 4-/5, add: 4/5 with pain in end range adduction, 4/5, abd: 4-/5, 4/5. Knee: flexion: 4-/5, 5-/5, ext: 4-/5, 5-/5, Ankle: DF: 4+/5, 5/5, PF: 4+/5, 4+/5 Palpation: Pt is significantly tender to palpation of the lateral L hip with pain with light touch. Pain is most acute along the femoral head with and gluteal region. If you have any questions or concerns, please feel free to contact me at [phone]. Thank you, Sapphire Henry, PT, DPT, CLT MTDD
--- NOTE | 2018-08-30 10:29 | PT PLAN OF CARE ---
Physician: Vannessa Taylor MD Patient is being seen: 2-3x/Week Therapist: Sapphire Henry, PT, DPT, CLT Medical Diagnosis: Bilateral Lateral Hip Pain Treatment Diagnosis: Bilateral Lateral Hip Pain, Left Piriformis Syndrome Date of Onset: 06/10/18 Date of Initial Evaluation: 06/10/18 Date patient was last seen: 08/30/18 Number of treatments: 20 Number of cancellations/No shows: 5 INTERVENTIONS: Manual Therapy/STM/MET Strengthening/condition Ice/Heat Range of Motion Spinal Stabilization Ultrasound Stretching Iontophoresis Neuromuscular Re-ed Closed Chain Program Electrical Stim Posture/Body mechanics Gait Trg/Balance Trg Biofeedback Home Exercise Program Mech./Manual Traction Therapeutic Activities Pelvic Floor GOALS: In 3 weeks pt will have no pain with end range L hip adduction for improved function with ADL's. MET In 3 weeks pt will be able to stand on B LE SLS for 10 seconds without hip drop or pain for improved function with gait and ADL's. MET on L only In 6 weeks pt will improve B hip strength to 4/5 or greater for improved function with ADL's. In 6 weeks pt will be able to walk 2 miles without onset of hip pain that day or the following day for improved function with recreational activities. PATIENT'S GOAL: Decrease pain and return to recreational walking and exercise. Status of Patient's Goals: 1/4 MET, 3/4 In Progress Patient Compliance: Good Prognosis: Good Reasons for continuing therapy: Corinne shows reduced pain with 3 weeks off of treatment. Pt is no longer having radiating pain up the back and down the leg except when lying on her back at night with knees bent for prolonged periods. At this time per pt request we are to continue PT for treatment of what now appears to be L piriformis syndrome with lingering effects of bursitis. Pt does not wish to address her back pain at this time. With resumption of PT treatment if radiating lumbar symptoms return, or if lateral hip strengthening does not make improvements pt will again be referred back to her doctor for further lumbar assessment. Further PT to focus on lateral hip strengthening and piriformis and IT band stretching to improve pt function with ADL's and decrease pain. Posture: Posture unremarkable at rest. ROM: Lumbar ROM: Flexion: full no pain, Ext: moderate restrictions with back pain, B SB: full and equal with pain with R SB on lateral hip, Rotation: full and equal without pain. Strength: LE MMT (L,R): Hip: flexion: 3+/5 with pain, 4-/5, ext: 4-/5, 4-/5, add: 4/5 with pain in end range adduction, 4/5, abd: 4-/5, 4/5. Knee: flexion: 4-/5, 5-/5, ext: 4-/5, 5-/5, Ankle: DF: 4+/5, 5/5, PF: 4+/5, 4+/5 Palpation: Pt is significantly tender to palpation of the posterior lateral L hip with pain with light touch. Pain is most acute along the piriformis distribution. If you have any questions or concerns, please feel free to contact me at [phone]. Thank you, Sapphire Henry, PT, DPT, CLT Referring provider signature: Date: MTDD
== END ==
LOC: PT 06-10 15:11
PROVIDERS: ATTEND Orthopaedic Surgery
DX: M76.02 Gluteal tendinitis, left hip (principal); M76.01 Gluteal tendinitis, right hip; M53.3 Sacrococcygeal disorders, not elsewhere classified
CPT/HCPCS: 97162

== ENCOUNTER 2018-10-11 09:45 | Outpatient (RCR) | payer BC ==
--- NOTE | 2018-09-27 09:56 | PT PLAN OF CARE ---
Physician: Vannessa Taylor MD Patient is being seen: 2x/Week Therapist: Sapphire Henry, PT, DPT, CLT Medical Diagnosis: Bilateral Lateral Hip Pain Treatment Diagnosis: Bilateral Lateral Hip Pain, Left Trochanteric and Gluteofemoral Bursitis Date of Onset: 06/10/18 Date of Initial Evaluation: 06/10/18 Date patient was last seen: 09/27/18 Number of treatments: 27 Number of cancellations/No shows: 6 INTERVENTIONS: Manual Therapy/STM/MET Strengthening/condition Ice/Heat Range of Motion Spinal Stabilization Ultrasound Stretching Iontophoresis Neuromuscular Re-ed Closed Chain Program Electrical Stim Posture/Body mechanics Gait Trg/Balance Trg Biofeedback Home Exercise Program Mech./Manual Traction Therapeutic Activities Pelvic Floor GOALS: In 3 weeks pt will have no pain with end range L hip adduction for improved function with ADL's. MET In 3 weeks pt will be able to stand on B LE SLS for 10 seconds without hip drop or pain for improved function with gait and ADL's. MET In 6 weeks pt will improve B hip strength to 4/5 or greater for improved function with ADL's. MET In 6 weeks pt will be able to walk 2 miles without onset of hip pain that day or the following day for improved function with recreational activities. PATIENT'S GOAL: Decrease pain and return to recreational walking and exercise. Status of Patient's Goals: 1/4 MET, 3/4 In Progress Patient Compliance: Good Prognosis: Good Reasons for continuing therapy: Corinne shows excellent progress towards functional goals with overall improved strength and activity tolerance. Pt remains to have slight bursitis symptoms with lateral hip tenderness with L side-lying, but no longer tender with most ADL's. Pt has returned to recreational walking and PT has been modified to decrease any potential stress along the low back with frequent exacerbation of radiating neuropathic symptoms when lumbar spine is over worked. Further, PT to continue with strengthening and progressive unloading of L bursa through muscular stabilization and neuromotor re-education. ROM: Lumbar ROM: Flexion: full no pain, Ext: moderate restrictions with back pain, B SB: full and equal with pain with R SB on lateral hip, Rotation: ull and equal without pain. Strength: LE MMT (L,R): Hip: flexion: 4+/5, 5-/5, ext: 4/5, 4/5, add: 4+/5, 4+/5, abd: 4+/5, 4+/5. Knee: flexion: 4+/5, 4+/5, ext: +-/5, 5-/5, Ankle: DF: 5/5, 5/5, PF: 4+/5, 5/5 If you have any questions or concerns, please feel free to contact me at [phone]. Thank you, Sapphire Henry, PT, DPT, CLT Referring provider signature: Date: MTDD
--- NOTE | 2018-10-11 10:11 | PT PLAN OF CARE ---
Physician: [facility] Patient is being seen: 2-3x/Week Therapist: Sapphire Henry, PT, DPT, CLT Medical Diagnosis: Bilateral Lateral Hip Pain Treatment Diagnosis: Bilateral Lateral Hip Pain, Left Trochanteric and Gluteofemoral Bursitis Date of Onset: 06/10/18 Date of Initial Evaluation: 06/10/18 Date patient was last seen: 10/11/18 Number of treatments: 30 Number of cancellations/No shows: 7 INTERVENTIONS: Manual Therapy/STM/MET Strengthening/condition Ice/Heat Range of Motion Spinal Stabilization Ultrasound Stretching Iontophoresis Neuromuscular Re-ed Closed Chain Program Electrical Stim Posture/Body mechanics Gait Trg/Balance Trg Biofeedback Home Exercise Program Mech./Manual Traction Therapeutic Activities Pelvic Floor GOALS: In 3 weeks pt will have no pain with end range L hip adduction for improved function with ADL's. MET In 3 weeks pt will be able to stand on B LE SLS for 10 seconds without hip drop or pain for improved function with gait and ADL's. Discontinued In 6 weeks pt will improve B hip strength to 4/5 or greater for improved function with ADL's. MET In 6 weeks pt will be able to walk 2 miles without onset of hip pain that day or the following day for improved function with recreational activities. MET PATIENT'S GOAL: Decrease pain and return to recreational walking and exercise. Status of Patient's Goals: 3/4 MET, 1/4 Discontinued Patient Compliance: Fair Prognosis: Good Reasons for discharge from therapy: Corinne is to discharge from physical therapy at this time secondary to a plateau in progress with treatment. Pt is unable to progress strengthening without "flare ups" occurring resulting in loss of function following. At the time of discharge pt remains to have lateral hip pain with sleeping on her side and with SLS. However, pt is able to walk 3 miles on green marketing specialist and many ADL's are improved including putting on shoes and transfers from seated to standing. Upon discharge pt is to follow up with her referring provider to seek possible steroid injection intervention for further management of her bursitis. ROM: Lumbar ROM: Flexion: full no pain, Ext: moderate restrictions with back pain, B SB: full and equal with pain with R SB on lateral hip, Rotation: full and equal without pain. Strength: LE MMT (L,R): Hip: flexion: 4+/5, 5-/5, ext: 4/5, 4/5, add: 4+/5, 4+/5, abd: 4+/5, 4+/5. Knee: flexion: 4+/5, 4+/5, ext: +-/5, 5-/5, Ankle: DF: 5/5, 5/5, PF: 4+/5, 5/5 If you have any questions or concerns, please feel free to contact me at [phone]. Thank you, Sapphire Henry, PT, DPT, CLT MTDD
== END 2018-10-11 18:00 | disposition home or self-care (01) ==
LOC: PT 09:45
PROVIDERS: ATTEND Orthopaedic Surgery
DX: M76.02 Gluteal tendinitis, left hip (principal); M76.01 Gluteal tendinitis, right hip; M53.3 Sacrococcygeal disorders, not elsewhere classified

== ENCOUNTER 2019-01-18 11:09 | Emergency (ER) | payer BC ==
[~2019-01-18 11:09] MED LIST changes: -LIO5; +LIOT5TAB; -OMEP-125 PO; +OMEP-126 PO; -RANI-366 PO; +RANI-54 PO
--- NOTE | 2019-01-18 11:23 | ER Report ---
History and Physical Time Seen By MD: 11:19 Hx. of Stated Complaint: FELT POP IN ANKLE AND PAIN WHILE WALKING HPI/ROS CHIEF COMPLAINT: Left lower leg pain HISTORY OF PRESENT ILLNESS: 63-year-old female patient persisted emergency room with complaint of left leg pain. Patient states that she has been spending a lot of time gardening, she was squatting down working on things. She states that when she stood up she have some pain in the Achilles. The patient states that today she was walking out of the bank and felt a pop in her ankle and since then has been having significant amounts of pain to the left leg. She states that she has some numbness to the tips of her toes, she has pain that radiates up her leg. She states that goes along the outside of the lower leg, crossed behind the knee and then up the backside of the upper leg. Patient states she does have history of back problems. She has had a laminectomy. REVIEW OF SYSTEMS: Respiratory: No cough, no dyspnea. Cardiovascular: No chest pain, no palpitations. Gastrointestinal: No vomiting, no abdominal pain. Musculoskeletal: As noted above Allergies: Coded Allergies: metronidazole (Verified Allergy, Severe, RASH, 01/18/19) ciprofloxacin (Verified Allergy, Intermediate, Rash, 01/18/19) Sulfa (Sulfonamide Antibiotics) (Verified Allergy, Mild, 01/18/19) Disorientation Home Meds Active Scripts Oxycodone Hcl/Acetaminophen (PERCOCET 5-325 MG TABLET) 1 Each Tablet, 1 EACH PO Q4-6H PRN for PAIN, #8 TAB Prov:SABINA WALKER HOSPICE CASE MANAGER 01/18/19 Oxycodone Hcl/Acetaminophen (PERCOCET 5-325 MG TABLET) 1 Each Tablet, 1-2 EACH PO Q4-6H PRN for PAIN, #15 Prov:MANUELA HAIDER DO 07/15/17 Reported Medications Progesterone,Micronized (PROMETRIUM) 200 Mg Capsule, 200 MG PO, CAPSULE 01/18/19 Levothyroxine Sodium (SYNTHROID) 100 Mcg Tablet, 100 MCG PO QDAY 01/18/19 Estradiol (Estradiol) 1 Each Patch.tdsw, 2XW 04/09/18 Discontinued Reported Medications Clindamycin Phosphate (CLEOCIN) 100 Mg Supp.vag, QHS 04/09/18 Cyclobenzaprine Hcl (CYCLOBENZAPRINE HCL) 10 Mg Tablet, 10 MG PO TID PRN for BACK SPASM, #9 TAB 08/17/15 Liothyronine Sodium (CYTOMEL) 5 Mcg Tablet, 10 MCG PO DAILY 08/17/15 Levothyroxine Sodium (SYNTHROID) 75 Mcg Tablet, 75 MCG PO DAILY 04/13/13 Discontinued Scripts Ranitidine Hcl (RANITIDINE HCL) 150 Mg Tablet, 1 TAB PO BID, #60 TAB 6 Refills Prov:LALITHA PEREZ MD 03/08/18 Past Medical/Surgical History Patient has a past medical history of bronchitis, asthma, nausea, osteopenia, left arm fracture, back pain. Patient has a surgical history of colonoscopy with polyp removal, hysterectomy, fractional D&C, tubal ligation, laminectomy, right eye surgery, cataract surgery bilaterally. Patient has a family medical history of cancer, CAD, diabetes. Reviewed Nurses Notes: Yes Hx Smoking: No Smoking Status: Never Smoker Exposure to Second Hand Smoke?: No Hx Substance Use Disorder: No Hx Alcohol Use: No Constitutional Vital Sign - Last 24 Hours 01/18/19 01/18/19 01/18/19 01/18/19 11:15 11:30 12:00 13:00 Temp 97.9 Pulse 88 78 74 84 Resp 16 B/P (MAP) 146/70 142/74 (96) 117/53 (74) Pulse Ox 94 95 95 95 O2 Delivery Room Air 01/18/19 01/18/19 13:05 13:30 Pulse 81 B/P (MAP) 127/83 (98) 126/84 (98) Pulse Ox 97 Physical Exam General Appearance: The patient is alert, has no immediate need for airway protection and no current signs of toxicity. Respiratory: Chest is non tender, lungs are clear to auscultation. Cardiac: regular rate and rhythm Gastrointestinal: Abdomen is soft and non tender, no masses, bowel sounds nor mal. Musculoskeletal: Neck: Neck is supple and non tender. Extremities have full range of motion and are non tender. Patient has tenderness to the left lower leg, patient has good movement with plantar flexion of the foot with compression of the calf. Patient has significant pain with dorsiflexion. Skin: No rashes or lesions. DIFFERENTIAL DIAGNOSIS: After history and physical exam differential diagnosis was considered for fracture, strain, Achilles tendon rupture. Medical Decision Making EKG/Imaging Imaging Exam type: ANKLE 3 VIEW MIN LEFT History: popping sensation and pain Comparison: None. Findings: Three views were submitted. There is no evidence of acute fracture dislocation or significant arthritic change involving the left ankle. IMPRESSION: 1. No acute osteoarticular abnormality the left ankle is seen Report Dictated By: Yue Stallings MD at 01/18/2019 1:06 PM Report E-Signed By: Yue Stallings MD at 01/18/2019 1:07 PM Exam type: FOOT 3 VIEW LEFT History: popping sensation and pain Comparison: None. Findings: Three views were submitted. There is a severe hallux valgus deformity involving the left first MTP joint. There is no evidence of acute fractures or dislocations. IMPRESSION: 1. Severe hallux valgus deformity involving the left first MTP joint Report Dictated By: Yue Stallings MD at 01/18/2019 1:05 PM Report E-Signed By: Yue Stallings MD at 01/18/2019 1:06 PM Exam type: L-SPINE >4 VIEWS History: popping sensation and pain Comparison: October 29, 2008. Findings: There five nonrib-bearing lumbar-type vertebral bodies present. There is no evidence of acute fractures or subluxations. Small calcification left mid abdomen could be renal in origin IMPRESSION: 1. No evidence of acute fracture or subluxation in the lumbar spine Report Dictated By: Yue Stallings MD at 01/18/2019 1:02 PM Report E-Signed By: Yue Stallings MD at 01/18/2019 1:05 PM Exam type: US VENOUS LOWER EXT LT History: pain in left lower leg, positive sukhwinder sign, or replacement x15 years Comparison: None. Findings: The left lower extremity veins are imaged including the left common femoral vein, greater saphenous vein, superficial femoral vein, popliteal vein, p osterior tibial vein, peroneal vein and anterior tibial veins revealing no evidence of intraluminal thrombi. The veins were compressible and demonstrated augmentation IMPRESSION: 1. No sonographic evidence DVT involving the left lower extremity veins Report Dictated By: Yue Stallings MD at 01/18/2019 1:09 PM Report E-Signed By: Yue Stallings MD at 01/18/2019 1:13 PM ED Course/Re-evaluation ED Course Patient is a 63 year old female c/o left calf pain after walking through the parking lot and hearing a pop 30 min prior to arrival to ED. She had done some gardening 2 days previously where she was squatting for 3-4 hours which is where the pain started. It was consistent until 30 min ago when it became severe. Ph ysical exam showed tenderness over the lateral ankle, calf and central posterior thigh up to the [place], associated tingling in her digits. Limited ROM with dorsi flexion and inversion of the ankle. Positive Sukhwinder's sign for pain with dorsi flexion with palpation of proximal left calf. Differential diagnoses were considered including DVT, ruptured achilles tendon, muscle strain, tendon strain, ankle fracture and L-spine stenosis. X-rays of left foot, ankle and L- spine were ordered along with US Doppler. Showed no acute abnormalities. Patient was given results, understood condition. She was placed in a walking boot, given crutches and 8 Hydrocodone-acetaminophen 5-325mg and discharge. Instructed to follow up with discharge if pain is not resolved within 1 week. Return precautions given. Decision to Disposition Date: Jan 18, 2019 Decision to Disposition Time: 13:37 Depart Departure Latest Vital Signs Vital Signs Date Time Temp Pulse Resp B/P (MAP) Pulse Ox O2 Delivery O2 Flow Rate FiO2 01/18/19 13:30 81 126/84 (98) 97 01/18/19 11:15 97.9 16 Room Air Impression: Primary Impression: Strain of left Achilles tendon Condition: Stable Disposition: HOME OR SELF-CARE Referrals: IMTIAZ CHAPIN DO (PCP) New Scripts Oxycodone Hcl/Acetaminophen (PERCOCET 5-325 MG TABLET) 1 Each Tablet 1 EACH PO Q4-6H PRN for PAIN, #8 TAB Prov: SABINA WALKER 01/18/19 Patient Instructions: Muscle Strain (ED) Additional Instructions: Rest, Ice, heat and use boot for ambulation as long as it does not make hip pain worse. Rx for pain medication given to use PRN for pain. Do not drive or operate heavy machinery while on the pain medication. If pain does not improve in 1 week follow up with Orthopedics. If pain suddenly worsens return to ED. Problem Qualifiers Primary Impression: Strain of left Achilles tendon Encounter type: initial encounter Qualified Codes: S86.012A - Strain of left Achilles tendon, initial encounter SABINA WALKER Jan 18, 2019 11:23
[2019-01-18] MEDS ORDERED: PROG200C16 PO (11:25)
[2019-01-18] MEDS ORDERED: LEVO100T95 PO (11:25)
--- NOTE | 2019-01-18 13:13 | RADIOLOGY IMAGING REPORT ---
FACILITY: [facility] - [place] PATIENT NAME: Corinne Chnad : 1955 MR: [id number] V: [id number] EXAM DATE: ORDERING PHYSICIAN: SABINA WALKER TECHNOLOGIST: Location: [facility] Patient: Corinne Chand : 1955 Visit/Account:[id number] Date of Sevice: 01/18/2019 Exam type: L-SPINE >4 VIEWS History: popping sensation and pain Comparison: October 29, 2008. Findings: There five nonrib-bearing lumbar-type vertebral bodies present. There is no evidence of acute fractu res or subluxations. Small calcification left mid abdomen could be renal in origin IMPRESSION: 1. No evidence of acute fracture or subluxation in the lumbar spine Report Dictated By: Yue Stallings MD at 01/18/2019 1:02 PM Report E-Signed By: Yue Stallings MD at 01/18/2019 1:05 PM WSN:[email or web address]
--- NOTE | 2019-01-18 13:14 | RADIOLOGY IMAGING REPORT ---
FACILITY: [facility] - [place] PATIENT NAME: Corinne Chand : 1955 MR: [id number] V: [id number] EXAM DATE: ORDERING PHYSICIAN: SABINA WALKER TECHNOLOGIST: Location: [facility] - [place] Patient: Corinne Chand : 1955 Visit/Account:[id number] Date of Sevice: 01/18/2019 Exam type: FOOT 3 VIEW LEFT History: popping sensation and pain Comparison: None. Findings: Three views were submitted. There is a severe hallux valgus deformity involving the left first MTP j oint. There is no evidence of acute fractures or dislocations. IMPRESSION: 1. Severe hallux valgus deformity involving the left first MTP joint Report Dictated By: Yue Stallings MD at 01/18/2019 1:05 PM Report E-Signed By: Yue Stallings MD at 01/18/2019 1:06 PM WSN:[email or web address]
[2019-01-18] MEDS ORDERED: IBUPROFEN 600 MG TAB PO ONE (13:15)
--- NOTE | 2019-01-18 13:16 | RADIOLOGY IMAGING REPORT ---
[place] [facility] [place] NAME: Corinne Chand : 1955 MR: [id number] V: [id number] EXAM DATE: ORDERING PHYSICIAN: SABINA WALKER TECHNOLOGIST: [place] [facility] [place] Corinne Chand : 1955 Visit/Account:[id number] Date of Sevice: 01/18/2019 Exam type: ANKLE 3 VIEW MIN LEFT History: popping sensation and pain Comparison: None. Findings: Three views were submitted. There is no evidence of acute fracture dislocation or significant arthri tic change involving the left ankle. IMPRESSION: 1. No acute osteoarticular abnormality the left ankle is seen Report Dictated By: Yue Stallings MD at 01/18/2019 1:06 PM Report E-Signed By: Yue Stallings MD at 01/18/2019 1:07 PM WSN:[email or web address]
--- NOTE | 2019-01-18 13:22 | RADIOLOGY IMAGING REPORT ---
FACILITY: [facility] PATIENT NAME: Corinne Chand : 1955 MR: [id number] V: [id number] EXAM DATE: [id number] ORDERING PHYSICIAN: SABINA WALKER TECHNOLOGIST: Location: [facility] Patient: Corinne Chand : 1955 Visit/Account:[id number] Date of Sevice: 01/18/2019 Exam type: US VENOUS LOWER EXT LT History: pain in left lower leg, positive sukhwinder sign, or replacement x15 years Comparison: None. Findings: The left lower extremity veins are imaged including the left common femoral vein, greater saphenous v ein, superficial femoral vein, popliteal vein, posterior tibial vein, peroneal vein and anterior tibi al veins revealing no evidence of intraluminal thrombi. The veins were compressible and demonstrated augmentation IMPRESSION: 1. No sonographic evidence DVT involving the left lower extremity veins Report Dictated By: Yue Stallings MD at 01/18/2019 1:09 PM Report E-Signed By: Yue Stallings MD at 01/18/2019 1:13 PM WSN:[email or web address]
[2019-01-18 13:30] VITALS: BP 126/84
[2019-01-18] MEDS ORDERED: HYDR-385 PO (13:43)
[2019-01-18] MEDS ORDERED: OXYC-865 PO (13:57)
== END 2019-01-18 14:02 | disposition home or self-care (01) ==
LOC: ER 11:09
DX: S86.012A Strain of left Achilles tendon, initial encounter (principal)
CPT/HCPCS: 72120; 99284